=== PATIENT | male | born 1990 | race Caucasian/White ===

== ENCOUNTER 2016-08-14 13:12 | Emergency (ER) | payer BC, OTHER ==
[~2016-08-14] VITALS: Ht 177.8 cm; Wt 86.2 kg
[2016-08-14 15:29] LABS: ANION GAP 7 MEQ/L (8-16); BLOOD UREA NITROGEN 13 MG/DL (7-18); CALCIUM LEVEL 9.3 MG/DL (8.5-10.1); CARBON DIOXIDE LEVEL 28 MEQ/L (21-32); CHLORIDE LEVEL 102 MEQ/L (98-107); GLOMERULAR FILTRATION RATE > 60.0 (>60); GLUCOSE, FASTING 89 MG/DL (70-105); POTASSIUM SERUM 4.3 MEQ/L (3.5-5.1); SODIUM LEVEL 137 MEQ/L (136-145)
[2016-08-14 16:49] VITALS: BP 156/97
--- NOTE | 2016-08-15 07:21 | ECGEPIP ---
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 Order Number: [id number] Reading MD: Les Zapata Measurements Intervals [place] Rate: 82 P: 43 ND: 151 QRS: 29 QRSD: 81 T: 10 QT: 335 QTc: 392 Interpretive Statements SINUS RHYTHM WITH SINUS ARRHYTHMIA NSTTW ABNORMALITY NO PRIORS Electronically Signed On 08-15-2016 7:21:16 EDT by Les Zapata
== END 2016-08-14 17:08 | disposition home or self-care (01) ==
LOC: M ED 14:18
DX: R03.0 Elevated blood-pressure reading, without diagnosis of hypertension (principal)